=== PATIENT | female | born 1980 | race Asian ===

== ENCOUNTER 2020-10-16 07:00 | Emergency (ER) | payer OTHER ==
[~2020-10-16] VITALS: Ht 160 cm; Wt 81.2 kg
[2020-10-16 07:09] VITALS: BP 142/83; TEMP 97.3
== END 2020-10-16 08:30 | disposition home or self-care (01) ==
LOC: ED 07:00
PROC: 0HQFXZZ Repair Right Hand Skin, External Approach (ICD-10-PCS; principal; 2020-10-16)
DX: S61.011A Laceration without foreign body of right thumb without damage to nail, initial encounter (principal); W26.0XXA Contact with knife, initial encounter; Y92.89 Other specified places as the place of occurrence of the external cause
CPT/HCPCS: 90471; 90715; 99283

== ENCOUNTER 2021-09-21 15:51 | Emergency (ER) | payer OTHER ==
[~2021-09-21] VITALS: Ht 160 cm; Wt 81.6 kg
[2021-09-21 18:33] VITALS: BP 145/85; TEMP 98.3
== END 2021-09-21 18:33 | disposition home or self-care (01) ==
LOC: ED 15:51
DX: R51.9 Headache, unspecified (principal)
CPT/HCPCS: 99283; J1170; J1885

== ENCOUNTER 2021-12-24 14:14 | Emergency (ER) | payer OTHER ==
[~2021-12-24] VITALS: Ht 160 cm; Wt 84.4 kg
[2021-12-24 16:11] VITALS: BP 151/92; TEMP 98.9
== END 2021-12-24 16:11 | disposition home or self-care (01) ==
LOC: ED 14:14
DX: G43.909 Migraine, unspecified, not intractable, without status migrainosus (principal); Z20.822 Contact with and (suspected) exposure to COVID-19
CPT/HCPCS: 87635; 93005; 96372; 99283; J1200; J1885; J2405; U0003

== ENCOUNTER 2022-10-05 06:24 | Emergency (ER) | payer OTHER ==
[~2022-10-05] VITALS: Ht 160 cm; Wt 84.4 kg
[2022-10-05 06:30] VITALS: BP 170/94; TEMP 98.5
[2022-10-05 07:00] LABS: PLATELET COUNT 194 K/uL (152-353)
[2022-10-05 07:08] LABS: POTASSIUM 4.2 mmol/L (3.6-5.2)
== END 2022-10-05 08:02 | disposition home or self-care (01) ==
LOC: ED 06:24
PROVIDERS: Emergency Medicine
DX: N39.0 Urinary tract infection, site not specified (principal); R10.33 Periumbilical pain
CPT/HCPCS: 80053; 81000; 83605; 83690; 85027; 87086; 87088; 96360; 96372; 96374; 96375; 99284; J1885; J2270; J2405; J3490; Q9963

== ENCOUNTER 2023-02-04 09:16 | Emergency (ER) | payer OTHER ==
[~2023-02-04] VITALS: Ht 160 cm; Wt 86.2 kg
[2023-02-04 10:57] VITALS: BP 165/98; TEMP 98.6
== END 2023-02-04 11:00 | disposition home or self-care (01) ==
LOC: ED 09:16
DX: I10 Essential (primary) hypertension (principal); M54.59 Other low back pain; X50.1XXA Overexertion from prolonged static or awkward postures, initial encounter; Y92.89 Other specified places as the place of occurrence of the external cause
CPT/HCPCS: 81000; 96372; 99283; J1885

== ENCOUNTER 2023-06-27 18:07 | Emergency (ER) | payer OTHER ==
[~2023-06-27] VITALS: Ht 160 cm; Wt 95.3 kg
[2023-06-27 18:36] VITALS: TEMP 98.8
[2023-06-27 20:07] LABS: PLATELET COUNT 194 K/uL (152-353)
[2023-06-27 20:09] LABS: POTASSIUM 3.8 mmol/L (3.6-5.2)
[2023-06-27 20:45] VITALS: BP 1410/89
== END 2023-06-27 20:45 | disposition home or self-care (01) ==
LOC: ED 18:07
PROVIDERS: Family Medicine
DX: N39.0 Urinary tract infection, site not specified (principal); M54.30 Sciatica, unspecified side
CPT/HCPCS: 80053; 81000; 85027; 87088; 96372; 99283; J1885; J2360